=== PATIENT | female | born 1990 | race Caucasian/White ===

== ENCOUNTER 2017-11-26 13:00 | Outpatient (CLI) | payer OTHER, BC, SELFPAY ==
[2017-11-26 13:35] VITALS: BMI 26.3
--- NOTE | 2017-11-26 17:50 | OB.TRI.NOTE ---
History of Present Illness Date of Service: 11/26/17 Was patient seen by the physician?: No Reason For Visit: MONITORING Date of Service: 11/26/17 Final CHARLES: 03/09/18 Final CHARLES Source: US <20 weeks Gestational age: 25 Weeks and 2 Days History of Present Illness: Nancy had a fall today hurting her ankle and striking her right abdomen. Denies abdominal pain or cramping. No bleeding. Good movement. Home Medications Medication Instructions Recorded Vits [Prenatabs FA] 1 tablet PO DAILY 11/26/17 busPIRone [Buspar] 5 mg PO BID 11/26/17 Allergies No Known Allergies Allergy (Verified 11/26/17 13:37) Physical Exam General: Alert, Oriented x3, Cooperative, No apparent distress Cardiovascular: Regular rate, Regular Rhythm Lungs: Clear to auscultation, Normal air movement Abdomen: Soft, Non Tender, Non-Distended, Gravid, Appropriate for Gestational Age Extremities:: No edema Estimated gestational size: Appropriate for gestational size Presentation: Unable to assess NST - FHR Rate Baby A Baseline: 150s Variability:: Moderate Accelerations:: 15 x 15 Decelerations:: None NST Reactive:: Yes, Appropriate for gestational age FHR Category:: Category I Uterine Activity:: none Impression/Plan No signs of abruption and reassuring status after prolonged monitoring. Warning signs given. Will followup in the office.
== END 2017-11-26 15:20 | disposition home or self-care (01) ==
LOC: WPOUT 13:09 → WP 13:10
PROVIDERS: Family Provider Family Medicine; PCP Family Medicine; Visit Provider Obstetrics & Gynecology
DX: Z34.92 Encounter for supervision of normal pregnancy, unspecified, second trimester (principal); W18.30XA Fall on same level, unspecified, initial encounter
CPT/HCPCS: 59025; 59050; 99218; G0378

== ENCOUNTER → 2018-02-07 15:33 | Outpatient (CLI) | payer OTHER, BC, SELFPAY ==
[2018-02-07 18:34] LABS: Group B Strep DNA By PCR POSITIVE (Negative); Probe Check PASS
== END ==
PROVIDERS: Visit Provider Obstetrics & Gynecology
DX: Z36.85 Encounter for antenatal screening for Streptococcus B (principal)
CPT/HCPCS: 87653

== ENCOUNTER 2018-02-18 17:08 | Inpatient (IN) | payer OTHER, BC, SELFPAY ==
[2018-02-18 13:40] VITALS: BMI 27.3
[2018-02-18] MEDS: Lactated Ringers 1,000 ML 50 ML IV ×3 (17:25→23:53)
[2018-02-18 17:47] LABS: Hematocrit 39.3 % (37-47); Hemoglobin 12.8 g/dl (12.0-15.0); Mean Corp Hgb Conc 32.6 g/gl (32-36); Mean Corpuscular Hgb 27.7 pg (27.0-32.0); Mean Corpuscular Volume 85.1 fL (81-99); Mean Platelet Vol. 10.6 fl (6.2-12.0); Platelet Count 215 K/mm3 (150-450); RBC Distribution Width SD 46.7 fl (35.1-43.9); Red Blood Count 4.62 M/mm3 (4.2-5.4)
[2018-02-18 17:50] LABS: Scan Indicated on CBC? Y/N NO
--- NOTE | 2018-02-18 20:10 | PCM.PN.BLA ---
Progress Note LABOR PROGRESS NOTE No complaints. Contractions persist, no increase in intensity. AVSS GEN - NAD, AAO x 3 FHR 145, moderate variability, + accelerations, no decelerations TOCO 2/10 min SVE deferred A/P: 27yo @ 37 2/7wga in active labor, Cat I FHR -GBS positive: PCN ppx - first dose completed approx 1 hour ago -Plan for repeat SVE in 1 hour -Maternal and statuses reassuring
[2018-02-18] MEDS: fentaNYL-bupivacaine (epidural) 100 ML BAG EPIDURAL (22:14)
--- NOTE | 2018-02-18 22:37 | PCM.PN.BLA ---
Progress Note LABOR PROGRESS NOTE Cat I FHR initially with FHR with prolonged deceleration down to 70s bpm. SVE /-2. Patient given O2 and repositioned into hands and knees. Difficulty obtaining accurate FHR tracing, thus ISE placed with exam /0. BP 96/52, P 86. FHR returned to 125, moderate variability following repositioning. Anesthesiology reconsulted for Ephedrine. Will continue to monitor. Anticipate .
[2018-02-18] MEDS: Ondansetron 4 MG/2 ML Vial IV (22:52)
[2018-02-19] MEDS: Oxytocin 30 units/NS 500 ml 30 UNITS/500 ML IV.SOLN 334 UNITS IV (01:25)
--- NOTE | 2018-02-19 01:37 | PCM.OB.VAG ---
- Problem List (1) 37 weeks gestation of Status: Acute (2) (spontaneous vaginal delivery) Status: Acute Vaginal Delivery Maternal Presentation: Active Labor Method of Induction: - - Amniotomy for augmentation Amniotic Membrane Rupture Type: Artificial Rupture of Membrane time: 02/18/18 2041h Amniotic Fluid Description: Clear Final CHARLES: 03/09/18 Final CHARLES Source: US <20 weeks Gestational age: 37 Weeks and 3 Days Date of Procedure: 02/19/18 Pre-Operative Diagnosis: 37 3/7wga, labor, GBS positive Post-Operative Diagnosis: 37 3/7wga, labor, GBS positive Surgery/ Procedure Performed: Spontaneous Vaginal Delivery Anesthesiologist: Kacey Austin Type of Anesthesia: Epidural Description of Procedure: Patient was FD/+2 station on my arrival. She pushed to deliver a vigorous male . The was placed on the maternal abdomen and further attended by nursery personnel. The cord was doubly clamped and cut aft 5 minutes of life. Cord gases and cord blood specimen were obtained. The placenta delivered spontaneously and appeared intact on inspection. A first degree perineal laceration was repaired using 3-0 Vicryl Rapide. The fundus was firm at the umbilicus. Sponge and needle counts were correct x 2. Presentation: Vertex Placental Delivery Description: Spontaneous Placenta Disposition: [facility] Cord Vessel Description: 3 Vessels Nuchal Cord Compression: Without compression Cord Gases drawn per routine: ABG, VBG Cord Entanglement: None Drain: Angela to straight drain Estimated Blood Loss: 250 ml A gender: Male (1 minute): 8 (5 minute): 9 Episiotomy Description: None Laceration: Midline, Perineal Extension/lac, 1st degree Medications given after delivery: IV Pitocin Complications: None
--- NOTE | 2018-02-19 01:44 | DCINST_ITS ---
Discharge Diet: No Restrictions Discharge Activity: Return to Normal Activity, May Shower, May Take a Tub Bath May resume sexual activity in: 6 weeks Lifting Restrictions: 20 lb Call your doctor if you observe: Fever of 101 or Higher, Inability to urinate, Inability to have a bowel movement, Using more than one pad per hour, Shortness of breath, Chest pain, Calf discomfort, Uncontrolled pain Suture Line Care: Avoid Pulling/Pushing Cleanse incision/area with: Soap & Water Additional Instructions: If you experience any of the following, contact your healthcare provider. * Bleeding that soaks a pad every hour for 2 hours * Fever 100.4 or higher * Unrelieved incision or abdominal pain * Swelling, redness, discharge or bleeding from your incision or episiotomy site * Your incision begins to separate * Problems urinating (including inability to urinate or burning while urinating) . * Visual changes * Severe headache * Flu-like symptoms * Pain or redness in one of both of your breasts * Pain, warmth, tenderness or swelling in your legs, especially the calf area * Frequent nausea and vomiting * Symptoms of depression or anxiety If you experience any of the following, call 911 or go to the nearest Emergency Room. * Chest pain * Problems breathing * Seizure activity * Partial or complete paralysis of a body part, slurred speech, weakness or drooping of the face, or a sudden inability to walk or hold your balance Allergies/Adverse Reactions: Allergies No Known Allergies Allergy (Verified 02/18/18 13:43) Medications to take at Discharge Vits [Prenatabs FA ] 1 tablet PO DAILY 11/26/17 busPIRone [Buspar] 5 mg PO BID 11/26/17 Ibuprofen 600 mg PO TID PRN #30 tab 02/20/18 The following prescriptions were given: Ibuprofen 600 mg PO TID PRN #30 tab PRN Reason: Pain Please Follow Up With: Luis Alberto Stephen MD When: 6 weeks Primary Care Physician: Luis Alberto Stephen MD [Primary Care Provider] - Test Results: Test results from this visit will be discussed in further detail at your follow- up appointment, if applicable.
[2018-02-19] MEDS: Oxytocin 30 units/NS 500 ml 30 UNITS/500 ML IV.SOLN 167 UNITS IV (01:55)
[2018-02-19 03:15] VITALS: BP 110/69; PULSE 117; RESP 16; TEMP 36.6
[2018-02-19 08:00] VITALS: BP 94/62; PULSE 72; RESP 18; TEMP 36.4
[2018-02-19] MEDS: Senna/Docusate Sodium 1 Tablet PO (08:13)
[2018-02-19] MEDS: Ibuprofen 600 MG Tablet PO ×2 (11:19→19:56)
[2018-02-19] MEDS: busPIRone 5 MG Tablet PO ×2 (11:20→22:02)
[2018-02-19] MEDS: Prenatal Vits Tablet 1 TABLET PO (11:20)
[2018-02-19 11:22] VITALS: BP 104/64; PULSE 85; RESP 18; TEMP 36.6
[2018-02-19 14:58] VITALS: BP 114/70; PULSE 80; RESP 18; TEMP 36.4
[2018-02-19 19:45] VITALS: BP 109/72; PULSE 94; RESP 18; TEMP 36.4; O2SAT 96
[2018-02-20 00:30] VITALS: BP 113/63; PULSE 79; RESP 16; TEMP 36.4; O2SAT 95
[2018-02-20 05:00] VITALS: BP 108/72; PULSE 77; RESP 16; TEMP 36.7; O2SAT 98
[2018-02-20] MEDS: Ibuprofen 600 MG Tablet PO ×2 (05:14→21:41)
--- NOTE | 2018-02-20 09:32 | PCM.PN.OB ---
Patient Problems: Active and Suspected Problems (Last Updated 02/16/18 @ 06:46 by Yamileth Morrissey) 37 weeks gestation of (Acute) (spontaneous vaginal delivery) (Acute) Subjective: Doing well, no issues overnight. Infant is nursing better yesterday and this morning. Objective: AVSS - Physical Exam General: Alert, Oriented x3, Cooperative, No apparent distress HEENT: Atraumatic, Normocephalic Lungs: Clear to auscultation, Normal air movement Cardiovascular: Regular rate, Regular Rhythm, Normal S1, Normal S2 Abdomen: Soft, Non Tender, Non-Distended, - - Fundus firm and nontender Extremities: No edema, No Calf Tenderness Neurological: Neuro grossly intact Psych/Mental Status: Normal Affect, Appropriate, Alert and oriented to time, place, person, mood and affect Vital Signs Temp Pulse Resp BP Pulse Ox 98.0 F 77 16 108/72 98 02/20/18 05:00 02/20/18 05:00 02/20/18 05:00 02/20/18 05:00 02/20/18 05:00 Oxygen Delivery Method Room Air Weight: 70.2 kg Body Mass Index (BMI) 27.3 Intake and Output for Last 24 Hours 02/18/18 02/19/18 02/20/18 23:59 23:59 23:59 Intake Total 3967 / 3967 Output Total 2500 / 2500 Balance 1467 / 1467 Microbiology Past 72 Hours 02/18/18 12:15 Urine Culture - Preliminary Urine, Clean Catch Mixed Gram Positive Organisms Medical Necessity - Tobacco Use Smoking Status: Former smoker Assessment/Plan All Active Problems (Last Updated 02/16/18 @ 06:46 by Yamileth Morrissey) 37 weeks gestation of (Acute) (spontaneous vaginal delivery) (Acute) Multiple premature ventricular complexes (Acute) Abnormal thyroid blood test (Acute) Tachycardia (Acute) 27yo PPD#1 s/p doing well. -Rh positive -Routine care - -Plan for d/c later today
[2018-02-20] MEDS: Prenatal Vits Tablet 1 TABLET PO (09:59)
[2018-02-20] MEDS: Senna/Docusate Sodium 1 Tablet PO (09:59)
[2018-02-20 10:00] VITALS: BP 111/79; PULSE 88; RESP 16; TEMP 36.2
[2018-02-20] MEDS: busPIRone 5 MG Tablet PO ×2 (13:43→21:41)
[2018-02-20 18:00] VITALS: BP 104/66; PULSE 85; RESP 16; TEMP 36.2
[2018-02-20 19:50] VITALS: BP 109/68; PULSE 87; RESP 16; TEMP 36.4; O2SAT 97
[2018-02-21 03:00] VITALS: BP 99/62; PULSE 98; RESP 18; TEMP 36.4; O2SAT 96
[2018-02-21 08:00] VITALS: BP 103/69; PULSE 83; RESP 16; TEMP 36.1
--- NOTE | 2018-02-21 08:15 | PCM.PN.OB ---
Patient Problems: Active and Suspected Problems (Last Updated 02/16/18 @ 06:46 by Yamileth Morrissey) 37 weeks gestation of (Acute) (spontaneous vaginal delivery) (Acute) Subjective: No issues overnight. Objective: avss - Physical Exam General: Alert, Oriented x3, Cooperative HEENT: Atraumatic, Normocephalic Lungs: Normal air movement Cardiovascular: Regular rate, Regular Rhythm Abdomen: Soft, Non Tender, Non-Distended, - - fundus firm and nontender Extremities: No edema, No Calf Tenderness Neurological: Neuro grossly intact Psych/Mental Status: Normal Affect, Appropriate, Alert and oriented to time, place, person, mood and affect Vital Signs Temp Pulse Resp BP Pulse Ox 97.5 F L 98 18 101/70 96 02/21/18 03:00 02/21/18 03:00 02/21/18 03:00 02/21/18 03:00 02/21/18 03:00 Oxygen Delivery Method Room Air Weight: 70.2 kg Body Mass Index (BMI) 27.3 Intake and Output for Last 24 Hours 02/19/18 02/20/18 02/21/18 23:59 23:59 23:59 Intake Total 3967 / 3967 Output Total 2500 / 2500 Balance 1467 / 1467 Microbiology Past 72 Hours 02/18/18 12:15 Urine Culture - Final Urine, Clean Catch Streptococcus group B Mixed Gram Positive Organisms Medical Necessity - Tobacco Use Smoking Status: Former smoker Assessment/Plan All Active Problems (Last Updated 02/16/18 @ 06:46 by Yamileth Morrissey) 37 weeks gestation of (Acute) (spontaneous vaginal delivery) (Acute) Multiple premature ventricular complexes (Acute) Abnormal thyroid blood test (Acute) Tachycardia (Acute) 27yo PPD#2 s/p doing well. -Rh positive -Routine care - -d/c today
--- NOTE | 2018-02-21 08:16 | PCM.DC.SUM ---
Discharge Date and Diagnosis - Problem List Patient Problems: Active and Suspected Problems (Last Updated 02/16/18 @ 06:46 by Yamileth Morrissey) 37 weeks gestation of (Acute) (spontaneous vaginal delivery) (Acute) Date of Admission: 02/18/18 Date of Discharge: 02/21/18 - Primary Discharge Diagnosis Active and Suspected Problems (Last Updated 02/16/18 @ 06:46 by Yamileth Morrissey) 37 weeks gestation of (Acute) (spontaneous vaginal delivery) (Acute) - Secondary Discharge Diagnosis Chronic Problems (Last Updated 02/16/18 @ 06:46 by Yamileth Morrissey) History of nicotine use (Chronic) Hyperlipidemia (Chronic) Hospital Course and Treatment Operations: None Summary of Care Provided: The patient is a 27 year old F admitted in latent labor. She progressed to deliver a vigorous male infant. Her course was unremarkable and she was discharged to home on day #2. Discharge Diet: No Restrictions Discharge Activity: Return to Normal Activity, May Shower, May Take a Tub Bath May resume sexual activity in: 6 weeks Call your doctor if you observe: Fever of 101 or Higher, Inability to urinate, Inability to have a bowel movement, Using more than one pad per hour, Shortness of breath, Chest pain, Calf discomfort, Uncontrolled pain Suture Line Care: Avoid Pulling/Pushing Cleanse incision/area with: Soap & Water Home Medications: Medications to take at Discharge Vits [Prenatabs FA ] 1 tablet PO DAILY 11/26/17 busPIRone [Buspar] 5 mg PO BID 11/26/17 Ibuprofen 600 mg PO TID PRN #30 tab 02/20/18 Following Prescrptions Were Given to Patient: Ibuprofen 600 mg PO TID PRN #30 tab PRN Reason: Pain Primary Care Physician: Luis Alberto Stephen MD [Primary Care Provider] - Please Follow Up With: Luis Alberto Stephen MD Medical Necessity - Tobacco Use Smoking Status: Former smoker Meaningful Use Info Meaningful Use Diagnoses (Choose all that apply): None applicable
[2018-02-21] MEDS: busPIRone 5 MG Tablet PO (09:17)
[2018-02-21] MEDS: Prenatal Vits Tablet 1 TABLET PO (09:17)
[2018-02-21] MEDS: Senna/Docusate Sodium 1 Tablet PO (09:17)
--- NOTE | 2018-03-01 16:15 | NURSING ---
made follow up phone call . no answer and no voicemail
== END 2018-02-21 13:15 | disposition home or self-care (01) | DRG 774 ==
LOC: WPOUT 17:08 → WP 02-19 01:19
PROVIDERS: Admitting Provider Obstetrics & Gynecology; Family Provider Obstetrics & Gynecology; PCP Obstetrics & Gynecology; Visit Provider Obstetrics & Gynecology
DX: O60.14X0 Preterm labor third trimester with preterm delivery third trimester, not applicable or unspecified (principal); O98.82 Other maternal infectious and parasitic diseases complicating childbirth; O76 Abnormality in fetal heart rate and rhythm complicating labor and delivery; B95.1 Streptococcus, group B, as the cause of diseases classified elsewhere; O69.81X0 Labor and delivery complicated by cord around neck, without compression, not applicable or unspecified; O70.0 First degree perineal laceration during delivery; Z3A.37 37 weeks gestation of pregnancy; Z37.0 Single live birth; Z87.891 Personal history of nicotine dependence
CPT/HCPCS: 59025; 59050; 85027; 86850; 86900; 87086; 87088; 99218; J7120; G0378; J2405

== ENCOUNTER → 2019-08-16 13:54 | Outpatient (CLI) | payer OTHER, BC, SELFPAY ==
[2019-08-09 12:43] VITALS: BMI 25.2
== END ==
LOC: PSN 13:56
PROVIDERS: PCP Family Medicine; Referring Provider Internal Medicine Cardiovascular Disease; Visit Provider Internal Medicine Cardiovascular Disease
DX: R00.2 Palpitations (principal); R07.9 Chest pain, unspecified
CPT/HCPCS: 93225; 93226

== ENCOUNTER → 2019-08-17 14:45 | Outpatient (CLI) | payer OTHER, BC, SELFPAY ==
[2019-08-09 12:43] VITALS: BMI 25.2
--- NOTE | 2019-08-17 14:45 | ECHOD_ITS ---
Reason For Study: MVP Procedure This was a 2D Doppler, Color Flow transthoracic echocardiogram. Exam performed in department. Left Ventricle Normal LV size. Left ventricular systolic function is normal. The estimated ejection fraction is 60 %. No regional wall motion abnormalities noted. Right Ventricle Normal RV size. Normal systolic function. Atria Normal left atrium. Normal right atrium. Mitral Valve Equivocal mitral valve prolapse. Mild (1+) eccentric mitral valve insufficiency. Tricuspid Valve Normal tricuspid valve. Mild (1+) tricuspid valve insufficiency. Pulmonary artery systolic pressure is 30 mmHg. Aortic Valve Normal aortic valve. Trisinus/trileaflet aortic valve. Pulmonic Valve Normal pulmonic valve. Great Vessels Normal aortic root. The pulmonary artery is normal size. Normal inferior vena cava. Pericardium/Pleural No pericardial effusion. MMode/2D Measurements & Calculations LVIDd: 4.8 cm IVSd: 0.71 cm Ao root diam: 2.7 cm LVIDs: 3.2 cm LVPWd: 0.77 cm RVDd: 2.9 cm FS: 33.5 % LAV(MOD-bp): 35.6 ml LA A4 area: 15.6 cm2 LA dimension(2D): 3.3 cm LAV(MOD-bp) Indexed: 22.0 ml/m2 LAV(MOD-sp2): 27.5 ml LAV(MOD-sp4): 38.5 ml RA A4 area: 10.8 cm2 Time Measurements MV dec time: 0.24 sec Doppler Measurements & Calculations MV E max tomer: 79.3 cm/sec Lat Peak E' Tomer: 17.0 cm/sec Med Peak E' Tomer: 13.9 cm/sec MV A max tomer: 52.2 cm/sec E/E' lat: 4.7 E/E' med: 5.7 MV E/A: 1.5 Ao V2 max: 134.3 cm/sec LV V1 max: 130.4 cm/sec TR max tomer: 252.1 cm/sec Ao max P.2 mmHg LV V1 max P.8 mmHg TR max P.4 mmHg Interpretation Summary Normal LV size. Left ventricular systolic function is normal. The estimated ejection fraction is 60 %. Equivocal mitral valve prolapse. Mild (1+) eccentric mitral valve insufficiency. Ordering Physician: Mayo Ferguson Referring Physician: ARUN AUGUSTIN Performed By: Jaylyn Moreno, [place], RVT
== END ==
LOC: CVS 14:45
PROVIDERS: PCP Family Medicine; Referring Provider Internal Medicine Cardiovascular Disease; Visit Provider Internal Medicine Cardiovascular Disease
DX: R00.2 Palpitations (principal)
CPT/HCPCS: 93306

== ENCOUNTER → 2020-06-21 11:03 | Outpatient (CLI) | payer OTHER, BC, MEDICAID, SELFPAY ==
--- NOTE | 2020-06-21 11:08 | US_ITS ---
STUDY: FIRST TRIMESTER OBSTETRICAL ULTRASOUND REASON FOR EXAM: Female, 29 years old SPOTTING WITH PREG- VIABILITY LMP: 05/04/2020. TECHNIQUE: Transvaginal TECHNICAL QUALITY: Adequate. PRIOR ULTRASOUND: None. FINDINGS: There is visualization of a single gestational sac in a normal intrauterine position. The mean sac diameter (MSD) measures 1.4 cm, indicating an estimated gestational age (EGA) of 6 weeks, 2 days. The gestational sac shape is within normal limits. There is a visualized yolk sac. The yolk sac measures 2 mm. The placenta is non-visualized. There is visualization of a live embryo. The crown-rump length (CRL) measures 3 mm, indicating an estimated gestational age (EGA) of 6 weeks, 1 days. There is demonstrated cardiac activity with a heart rate of 114 bpm. The estimated gestation age (EGA) by LMP is 6 weeks, 6 days. The estimated date of delivery (CHARLES) by LMP is 02/08/2021. The estimated gestation age (EGA) by US is 6 weeks, 1 days. The estimated date of delivery (CHARLES) by US is 02/13/2021. The uterus measures 10.2 cm x 6.7 cm x 5.9 cm. There is no demonstrated uterine fibroid. The cervix is closed. The right ovary measures 2.7 cm x 1.9 cm x 1.6 cm. There is no right ovarian cyst. There is no visualized right adnexal mass or complex lesion. The left ovary measures 2.4 cm x 1.5 cm x 1.4 cm. There is no left ovarian cyst. There is no visualized left adnexal mass or complex lesion. There is no fluid in the cul de sac. US/Transvaginal w/Preg US IMPRESSION: Single live intrauterine gestation with mean gestational age of 6 weeks and 1 day. Electronically Signed: Bhupinder Harding, at 12:08 EST , Service support ,
== END ==
PROVIDERS: PCP Family Medicine; Referring Provider Obstetrics & Gynecology; Visit Provider Obstetrics & Gynecology
DX: R35.0 Frequency of micturition (principal)
CPT/HCPCS: 76817; 87086; 87088

== ENCOUNTER → 2020-07-04 16:38 | Outpatient (CLI) | payer OTHER, BC, MEDICAID, SELFPAY ==
[2020-07-04 10:10] VITALS: BMI 28.0
[2020-07-04 18:34] LABS: Amphetamine Urine VISTA NEGATIVE (<1000 ng/mL); Barbiturate Urine VISTA NEGATIVE (< 200 ng/mL); Benzodiazepine Urine VISTA NEGATIVE (< 200 ng/mL); Cocaine Urine VISTA NEGATIVE (< 300 ng/mL); Ecstacy Urine VISTA NEGATIVE (< 500 ng/mL); Methadone Urine VISTA NEGATIVE (< 300 ng/mL); PCP Urine VISTA NEGATIVE (< 25 ng/mL); THC Urine VISTA NEGATIVE (< 50 ng/mL); Vista UDS pH Range 6
[2020-07-08 16:08] LABS: Chlamydia By Nucleic Acid AMP Negative (Negative)
[2020-07-08 20:51] LABS: Gonococcus By Nucleic Acid AMP Negative (Negative)
== END ==
PROVIDERS: PCP Family Medicine; Referring Provider Obstetrics & Gynecology; Visit Provider Obstetrics & Gynecology
DX: Z34.90 Encounter for supervision of normal pregnancy, unspecified, unspecified trimester (principal)
CPT/HCPCS: 80307; 87086; 87088; 87491; 87591

== ENCOUNTER → 2020-08-01 11:01 | Outpatient (CLI) | payer OTHER, BC, MEDICAID, SELFPAY ==
[2020-08-01 11:20] LABS: Absolute Lymphocyte Count 1.31 X10^3/uL (0.83-4.51); Basophil# 0.03 X10^3/uL; Basophil% 0.3 % (0-1); Eosinophil# 0.07 X10^3/uL; Eosinophils% 0.8 % (0-5); Hematocrit 40.8 % (37-47); Hemoglobin 14.1 g/dL (12.0-15.0); Lymphocyte # 1.31 X10^3/ul (4.0); Lymphocyte % 14.6 % (19-41); Mean Corp Hgb Conc 34.6 g/dL (32-36); Mean Corpuscular Hgb 31.5 pg (27.0-32.0); Mean Corpuscular Volume 91.1 fL (81-99); Mean Platelet Vol. 9.9 fl (6.2-12.0); Monocyte# 0.52 X10^3/uL; Monocyte% 5.8 % (0-10); NRBC Flagged by Analyzer 0 % (0-5); Neutrophil # 6.99 X10^3/uL (2.7-7.7); Neutrophil % 78.2 % (47-70); Platelet Count 306 K/mm3 (150-450); RBC Distribution Width CV 13.1 % (11.6-14.6); RBC Distribution Width SD 43.6 fl (35.1-43.9); Red Blood Count 4.48 M/mm3 (4.2-5.4)
[2020-08-01 12:43] LABS: HIV - WCH Non-Reactive (Nonreactive); Hepatitis B Surface Antigen Non-Reactive (Nonreactive); Hepatitis C Antibody Non-Reactive (Nonreactive); Rubella IgG Reactive (Nonreactive)
[2020-08-08 03:02] LABS: Rapid Plasmin Reagin (RPR) NONREACTIVE (NONREACTIVE)
== END ==
PROVIDERS: PCP Family Medicine; Referring Provider Obstetrics & Gynecology; Visit Provider Obstetrics & Gynecology
DX: Z34.90 Encounter for supervision of normal pregnancy, unspecified, unspecified trimester (principal)
CPT/HCPCS: 36415; 85025; 86592; 86703; 86762; 86803; 86850; 86900; 86901; 87340

== ENCOUNTER → 2020-08-30 10:06 | Outpatient (CLI) | payer OTHER, BC, MEDICAID, SELFPAY ==
[2020-08-30 09:39] VITALS: BMI 27.3
[2020-08-30 11:20] LABS: NATERA MAILED SPECIMEN
== END ==
PROVIDERS: PCP Family Medicine; Referring Provider Obstetrics & Gynecology; Visit Provider Obstetrics & Gynecology
DX: Z34.82 Encounter for supervision of other normal pregnancy, second trimester (principal)
CPT/HCPCS: 36415

== ENCOUNTER → 2020-10-03 10:14 | Outpatient (CLI) | payer OTHER, BC, MEDICAID, SELFPAY ==
[2020-09-26 09:03] VITALS: BMI 26.6
[2020-10-03 10:17] VITALS: BP 121/74; PULSE 114; RESP 16; TEMP 35.7; O2SAT 96; BMI 26.5
[2020-10-03] MEDS: Ondansetron 4 MG/2 ML Vial IV (10:29)
[2020-10-03] MEDS: Dextrose 5%-Lactated Ringers 1,000 ML 999 ML IV (10:40)
[2020-10-03 11:49] VITALS: BP 116/65; PULSE 95; RESP 16; O2SAT 100
== END ==
PROVIDERS: PCP Family Medicine; Referring Provider Obstetrics & Gynecology; Visit Provider Obstetrics & Gynecology
DX: E86.0 Dehydration (principal)
CPT/HCPCS: 96365; A4216; J2405

== ENCOUNTER → 2020-11-12 12:05 | Outpatient (CLI) | payer OTHER, BC, MEDICAID, SELFPAY ==
[2020-11-11 09:48] VITALS: BMI 27.3
[2020-11-12 12:50] LABS: Absolute Lymphocyte Count 1.08 X10^3/uL (0.83-4.51); Absolute Neutrophil Count 6.1 X10^3/uL (2.0-7.7); Basophil# 0.03 X10^3/uL; Basophil% 0.4 % (0-1); Eosinophil# 0.12 X10^3/uL; Eosinophils% 1.5 % (0-5); Hematocrit 40.4 % (37-47); Hemoglobin 13.4 g/dL (12.0-15.0); Lymphocyte # 1.08 X10^3/ul (0.83-4.51); Lymphocyte % 13.6 % (19-41); Mean Corp Hgb Conc 33.2 g/dL (32-36); Mean Corpuscular Hgb 29.7 pg (27.0-32.0); Mean Corpuscular Volume 89.6 fL (81-99); Mean Platelet Vol. 10.6 fl (6.2-12.0); Monocyte# 0.58 X10^3/uL; Monocyte% 7.3 % (0-10); NRBC Flagged by Analyzer 0 % (0-5); Neutrophil # 6.07 X10^3/uL (2.7-7.7); Neutrophil % 76.7 % (47-70); Platelet Count 289 K/mm3 (150-450); RBC Distribution Width CV 15.1 % (11.6-14.6); Red Blood Count 4.51 M/mm3 (4.2-5.4); White Blood Count 7.9 K/mm3 (4.4-11.0)
[2020-11-12 13:08] LABS: Glucose Challenge Gest 1H 50g 137 mg/dL (70-140)
== END ==
PROVIDERS: Nurse Practitioner Women's Health; PCP Family Medicine; Referring Provider Obstetrics & Gynecology; Visit Provider Obstetrics & Gynecology
DX: O09.90 Supervision of high risk pregnancy, unspecified, unspecified trimester (principal); Z13.1 Encounter for screening for diabetes mellitus; Z3A.00 Weeks of gestation of pregnancy not specified
CPT/HCPCS: 36415; 82950; 85025

== ENCOUNTER → 2020-11-15 10:13 | Outpatient (CLI) | payer OTHER, BC, MEDICAID, SELFPAY ==
[2020-11-12 12:59] VITALS: BMI 27.3
[2020-11-15 11:47] LABS: Glucose GTT-Gestation. Fasting 79 mg/dL (<105)
[2020-11-15 12:57] LABS: Glucose GTT-Gestational 1 Hr 135 mg/dL (<190)
[2020-11-15 12:58] LABS: Glucose GTT-Gestational 2 Hr 119 mg/dL (<165)
[2020-11-15 13:57] LABS: Glucose GTT-Gestational 3 Hr 116 L (<145)
== END ==
PROVIDERS: PCP Family Medicine; Referring Provider Nurse Practitioner Women's Health; Visit Provider Nurse Practitioner Women's Health
DX: Z13.1 Encounter for screening for diabetes mellitus (principal)
CPT/HCPCS: 36415; 82951; 82952

== ENCOUNTER → 2020-12-10 12:07 | Outpatient (CLI) | payer BC, MEDICAID, SELFPAY ==
[2020-11-12 12:59] VITALS: BMI 27.3
[2020-12-10 11:53] VITALS: BMI 27.3
--- NOTE | 2020-12-10 12:09 | US_ITS ---
STUDY: SECOND AND THIRD TRIMESTER OBSTETRICAL ULTRASOUND - LIMITED REASON FOR EXAM: Female, 30 years old growth LMP: 05/04/2020. PRIOR ULTRASOUND: Comparison is made with prior study dated 06/21/2020. TECHNIQUE: Transabdominal TECHNICAL QUALITY: Adequate. FINDINGS: There is a single intrauterine fetus. The fetus is in a cephalic presentation. There is demonstrated cardiac activity with a heart rate of 144 bpm. There is a normal amniotic fluid volume. The largest amniotic fluid pocket measures 4 cm x 3.9 cm. The amniotic fluid index (LISANDRO) is 12.9 cm. The placenta is anterior in location and is not low lying. There are Grade 1 placental changes. The cervix measures 3.3 cm in length. BIOMETRY: BPD: 7.82 cm: 31 weeks, 2 days HC: 28.72 cm: 31 weeks, 4 days AC: 27.63 cm: 31 weeks, 4 days FL: 5.9 cm: 30 weeks, 5 days Age by LMP: 31 weeks, 3 days. CHARLES by LMP: 02/08/2021. age by prior US: 30 weeks, 5 days. CHARLES by prior US: 02/13/2021. age by current US: 31 weeks, 1 days. CHARLES by current US: 02/10/2021. Estimated weight: 1770 grams, +/- 266 grams, 39.1 percentile. US/OB Limited With Biometrics IMPRESSION: Single live intrauterine gestation with a mean gestational age of 30 weeks and 5 days. The measurements obtained today fall within the normal expected range. Electronically Signed: Bhupinder Harding MD at 13:56 EDT , Service support ,
== END ==
PROVIDERS: PCP Family Medicine; Referring Provider Obstetrics & Gynecology; Visit Provider Obstetrics & Gynecology
DX: Z86.79 Personal history of other diseases of the circulatory system (principal)
CPT/HCPCS: 76816

== ENCOUNTER → 2020-12-23 16:55 | Outpatient (CLI) | payer BC, MEDICAID, SELFPAY ==
[2020-12-23 11:37] VITALS: BMI 26.7
== END ==
PROVIDERS: PCP Family Medicine; Visit Provider Obstetrics & Gynecology
DX: O26.899 Other specified pregnancy related conditions, unspecified trimester (principal); N89.8 Other specified noninflammatory disorders of vagina; Z3A.00 Weeks of gestation of pregnancy not specified
CPT/HCPCS: 87070; 87205

== ENCOUNTER → 2021-01-07 12:13 | Outpatient (CLI) | payer BC, MEDICAID, SELFPAY ==
[2020-12-23 11:37] VITALS: BMI 26.7
[2021-01-07 11:36] VITALS: BMI 26.7
--- NOTE | 2021-01-07 12:15 | US_ITS ---
STUDY: SECOND AND THIRD TRIMESTER OBSTETRICAL ULTRASOUND - LIMITED REASON FOR EXAM: Female, 30 years old. growth. History of hypertension. LMP: 05/04/20 PRIOR ULTRASOUND: 12/10/20 TECHNIQUE: Transabdominal ultrasound evaluation was performed. FINDINGS: There is a single intrauterine fetus. The fetus is in a cephalic presentation. There is demonstrated cardiac activity with a heart rate of 143 bpm. There is a normal amniotic fluid volume. The largest amniotic fluid pocket measures 4.9 cm. The amniotic fluid index (LISANDRO) is 11.2 cm. The placenta is anterior in location and is not low lying. There are Grade 1 placental changes. The cervix is closed and measures 3.2 cm in length. BIOMETRY: BPD: 8.67 cm: 34 weeks, 6 days HC: 31.57 cm: 35 weeks, 3 days AC: 31.91 cm: 35 weeks, 5 days FL: 6.84 cm: 35 weeks, 0 days Age by LMP: 35 weeks, 3 days. CHARLES by LMP: 02/08/21. age by prior US: 35 weeks, 1 days. CHARLES by prior US: 02/10/21. age by current US: 35 weeks, 1 days. CHARLES by current US: 02/10/21. Estimated weight: 2724 grams, +/- 409 grams, 54 percentile. US/OB Limited With Biometrics IMPRESSION: Single live intrauterine gestation at approximately 35 weeks and 1 day based on the current ultrasound. Electronically Signed: Paul Hennessy MD at 9:21 EDT Tel , Service support ,
== END ==
PROVIDERS: PCP Family Medicine; Referring Provider Obstetrics & Gynecology; Visit Provider Obstetrics & Gynecology
DX: Z86.79 Personal history of other diseases of the circulatory system (principal)
CPT/HCPCS: 76816

== ENCOUNTER 2021-01-12 18:55 | Outpatient (CLI) | payer BC, MEDICAID, SELFPAY ==
[2021-01-07 11:36] VITALS: BMI 26.7
[2021-01-12 19:22] VITALS: BP 134/89; PULSE 103; PULSE 105; TEMP 36.8; O2SAT 98
[2021-01-12 19:29] VITALS: BMI 27.3
[2021-01-12 20:06] LABS: ROM Internal Control Test YES-OK TO RESULT pt. (Internal QC)
[2021-01-12 20:07] LABS: ROM Patient Test Negative (Negative)
--- NOTE | 2021-01-24 14:24 | OB.TRI.PN_ITS ---
Progress Notes Date of Service: 01/21/21 Progress Note: Patient presents for triage evaluation secondary to contractions. Cervix unchanged after recheck. Discharged in stable condition. FHT: Moderate variability reactive no decelerations category I tracing [facility]: Irregular Contractions Assessment and plan: Reactive NST, reassuring maternal and status patient discharged to home to follow-up at next scheduled visit. See problem list details for additional plan information. Laboratory Studies: Laboratory Tests 01/12/21 Range/Units 19:37 Vag Amniotic Fld Detect Negative (Negative)
== END 2021-01-12 20:49 | disposition home or self-care (01) ==
LOC: WPOUT 19:04 → WP 19:04
PROVIDERS: PCP Family Medicine; Visit Provider Obstetrics & Gynecology
DX: O47.9 False labor, unspecified (principal); Z3A.00 Weeks of gestation of pregnancy not specified
CPT/HCPCS: 59025; 59050; 84112; 99218; G0378

== ENCOUNTER → 2021-01-15 13:43 | Outpatient (CLI) | payer BC, MEDICAID, SELFPAY ==
[2021-01-15 11:20] VITALS: BMI 27.1
== END ==
PROVIDERS: PCP Family Medicine; Visit Provider Obstetrics & Gynecology
DX: O09.90 Supervision of high risk pregnancy, unspecified, unspecified trimester (principal); Z3A.00 Weeks of gestation of pregnancy not specified
CPT/HCPCS: 87081

== ENCOUNTER 2021-01-21 00:22 | Outpatient (CLI) | payer BC, MEDICAID, SELFPAY ==
[2021-01-15 11:20] VITALS: BMI 27.1
[2021-01-21 00:41] VITALS: BP 129/81; PULSE 93; TEMP 36.7; O2SAT 98
[2021-01-21 00:43] VITALS: BMI 27.3
[2021-01-21 04:17] VITALS: BP 124/84; PULSE 81
[2021-01-21 04:18] VITALS: BP 124/84; PULSE 92; RESP 18; TEMP 36.2; O2SAT 98
--- NOTE | 2021-01-21 07:26 | OB.TRI.PN ---
Progress Notes Date of Service: 01/21/21 Progress Note: Patient presents for triage evaluation secondary to contractions FHT: 130 Moderate variability reactive no decelerations category I tracing [place]: q1-6 Contractions Assessment and plan: false labor, no cervical change in 4 hours Reactive NST, reassuring maternal and status patient discharged to home to follow-up as scheduled. See problem list details for additional plan information. Charges/Coding Procedures Urinary/Genital [id number]: [id number] non-stress test Interp Assessment & Plan (1) False labor:
== END 2021-01-21 04:19 | disposition home or self-care (01) ==
LOC: WPOUT 00:33 → OBT 00:33
PROVIDERS: PCP Family Medicine; Visit Provider Obstetrics & Gynecology
DX: O47.9 False labor, unspecified (principal); Z3A.00 Weeks of gestation of pregnancy not specified
CPT/HCPCS: 59025; 59050; 99218; G0378

== ENCOUNTER 2021-01-25 06:55 | Inpatient (IN) | payer BC, MEDICAID, SELFPAY ==
[2021-01-24 11:29] VITALS: BMI 27.3
[2021-01-25] VITALS (46 sets, daily range): BP systolic 77–126; BP diastolic 44–86; PULSE 61–127; RESP 16–20; TEMP 36.7–37.6; O2SAT 82–100; BMI 27.2
[2021-01-25] MEDS: Lactated Ringers 1,000 ML 50 ML IV (07:45)
[2021-01-25 08:07] LABS: Absolute Lymphocyte Count 1.55 X10^3/uL (0.83-4.51); Absolute Neutrophil Count 6.2 X10^3/uL (2.0-7.7); Basophil# 0.03 X10^3/uL; Basophil% 0.4 % (0-1); Eosinophil# 0.07 X10^3/uL; Eosinophils% 0.8 % (0-5); Hematocrit 41.2 % (37-47); Hemoglobin 14.1 g/dL (12.0-15.0); Lymphocyte # 1.55 X10^3/ul (0.83-4.51); Lymphocyte % 18.1 % (19-41); Mean Corp Hgb Conc 34.2 g/dL (32-36); Mean Corpuscular Volume 87.7 fL (81-99); Mean Platelet Vol. 11.1 fl (6.2-12.0); Monocyte# 0.71 X10^3/uL; Monocyte% 8.3 % (0-10); NRBC Flagged by Analyzer 0 % (0-5); Neutrophil # 6.17 X10^3/uL (2.7-7.7); Platelet Count 271 K/mm3 (150-450); RBC Distribution Width CV 15.2 % (11.6-14.6); RBC Distribution Width SD 48.4 fl (35.1-43.9); White Blood Count 8.6 K/mm3 (4.4-11.0)
[2021-01-25] MEDS: Oxytocin 30 units/NS 500 ml 30 UNITS/500 ML IV.SOLN IV (08:19)
[2021-01-25] MEDS: Lactated Ringers 500 ML 999 ML IV ×2 (09:30→10:24)
--- NOTE | 2021-01-25 09:43 | HP.PCM.OB_ITS ---
HPI - General General Date of Admission: 01/25/21 HPI Narrative KARMA FU, is a 30 F at 38 weeks who presents for induction of labor for chronic hypertension Maternal Data Information CHARLES Calculator Estimated Delivery Date Method Current WG Current Estimate 02/08/21 LMP (Certain) 38w 0d Other Estimates 02/13/21 Ultrasound #1 37w 2d PFSH PFSH Medical History (Updated 01/25/21 @ 09:[address] Justine Kinsey MD) Anxiety Chronic hypertension Contraceptive management History of tetanus, diphtheria, and acellular pertussis booster vaccination (Tdap) Hyperlipidemia MRSA infection Multiple premature ventricular complexes Nonrheumatic mitral (valve) prolapse depression (spontaneous vaginal delivery) Tachycardia Home Medications lactobacillus combination no.8 3 billion cell capsule 3,000 mmu cells PO DAILY 06/21/20 [History Last Taken 01/24/21 21:00] ondansetron 4 mg disintegrating tablet 4 mg PO Q4H PRN #60 tab 07/16/20 [Rx Last Taken 01/08/21 08:00] fluoxetine 40 mg PO DAILY 01/12/21 [History Last Taken 01/24/21 06:00] buufsyyd-cbn-Nc-FA [ 1] 1 tab PO DAILY 01/12/21 [History Last Taken 01/24/21 21:00] magnesium 1 tab PO DAILY 01/21/21 [History Last Taken 01/21/21] Allergy/AdvReac Type Severity Reaction Status Date / Time No Known Allergies Allergy Verified 01/24/21 11:26 Family History Mother , from renal failure age 56 Diabetes Thyroid disorder Kidney disease from L\lupus/renal failure Heart disease Mitral Valve Repair Lupus Grandmother Cancer Maternal grandmother ovarian Lung cancer paternal Grandmother Father CAD (coronary artery disease) from [place] Myocardial infarction, Onset Age: 49 from [place] 47 Surgical History (Updated 01/25/21 @ 08:09 by Noemy Long) History of surgery Social History Smoking Status: Former smoker quit date: 07/19/18 pack-years: 4 alcohol intake: never substance use type: does not use caffeine: Yes what type of physical activity do you participate in: none seatbelt use: always do you feel safe at home: Yes additional social history: -Ernesto History 5 Elective abortions Hx Para 2 Spontaneous abortions Hx # Term Pregnancies Ectopic pregnancies Hx # Pregnancies Multiple births # of living children 2 Past Pregnancies Del. Date Name GA/Weeks Outcome Route Bth Weight Gen Labor Lgth Anesthesia Del Locatn Provider FOB 09/13/16 Jose 37 live - full term Male Marie Ernesto 02/19/18 Amrit 37 live - full term Male [facility] Dr. Kira Hernandez Ernesto Delivery Date: 09/13/16 tachycardia during labor, water broke at 37 weeks Randi Holt Delivery Date: 02/19/18 No issues during or delivery. Randi Holt Visit Details Expected Delivery Route/Plan by 38-39 due to h/o CHTN Labor Preferences- CB/BF classes: no labor support person: Ernesto labor intervention preferences: [] pain management options preferred: epidural cut cord/dad catch: no : yes PP control planned: discussed. consider IUD discussed possible routes of delivery and associated risks: [] special requests: [] Plans flu vaccine: no tdap vaccine: given rhogam: na LARC form signed: yes movement and labor precautions reviewed. Problem list reviewed and updated with the most current plan of care details and appropriate orders placed. Relevant counseling for the gestational age provided. Continue routine care and follow up unless otherwise noted in visit notes/problem list details OB Flowsheet Initial Weight: Not Recorded Date -?-?-?-?-?-?-?-?-?-?-?-?- EGA Weight BP Urine Prot -?-?-?-?-?-?-?-?-?-?-?-?- Glucose FHR FuHt Pres Dilation -?-?-?-?-?-?-?-?-?-?-?-?- Effaced St Visit Note 07/04/20 -?-?-?-?-?-?-?-?-?-?-?-?- 8w 5d 153 lb 128/88 -?-?-?-?-?-?-?-?-?-?-?-?- 160 -?-?-?-?-?-?-?-?-?-?-?-?- GP - CRL 18mm co nsistent with LMP and prior US. 08/01/20 -?-?-?-?-?-?-?-?-?-?-?-?- 12w 5d 108/84 Negative -?-?-?-?-?-?-?-?-?-?-?-?- Negative 150 -?-?-?-?-?-?-?-?-?-?-?-?- SM- no vb crampi ng doing well 08/30/20 -?-?-?-?-?-?-?-?-?-?-?-?- 16w 6d 149 lb 6 oz 112/76 Nega tive -?--?-?-?-?-?-?-?-?-?-?-?- Negative 150 -?-?-?-?-?-?-?-?-?-?-?-?- GP - no cramping or bleeding. Has had sinus infection for the past week that is getting worse - script given for amoxicillin. 09/26/20 -?-?-?-?-?-?-?-?-?-?-?-?- 20w 5d 146 lb 104/70 -?-?-?-?-?-?-?-?-?-?-?-?- 145 20 -?-?-?-?-?-?-?-?-?-?-?-?- SM- no vb lof go od fm no regular ctx 10/24/20 -?-?-?-?-?-?-?-?-?-?-?-?- 24w 5d 118/70 Trace -?-?-?-?-?-?-?-?-?-?-?-?- Negative 148 24 -?-?-?-?-?-?-?-?-?-?-?-?- -NO VB, LOF. S karon down so no weight. FM limited/ant placenta. echo is scheduled. 11/12/20 -?-?-?-?-?-?-?-?-?-?-?-?- 27w 3d 147 lb 8 oz 124/78 Nega tive -?-?-?-?-?-?-?-?-?-?-?-?- Negative 151 26 -?-?-?-?-?-?-?-?-?-?-?-?- MH-no VB, LOF. G ood FM. Nl CBC. Needs 3 hr GTT. Reviewed [facility] MFM US:she will schedule echo at [facility] and also growth US at [facility] 4 weeks. tdap, larc 11/27/20 -?-?-?-?-?-?-?-?-?-?-?-?- 29w 4d 150 lb 2 oz 130/72 Nega tive -?-?-?-?-?-?-?-?-?-?-?-?- Negative 145 29 -?-?-?-?-?-?-?-?-?-?-?-?- GP - no LOF, VB, DFM, ctx. Having heart palpitations and SOB with exercise - plan cardiology referral. 3h GTT nl. 12/10/20 -?-?-?-?-?-?-?-?-?-?-?-?- 31w 3d 148 lb 2 oz 102/60 Trac e -?-?-?-?-?-?-?-?-?-?-?-?- Negative 140 29 Cephalic -?-?-?-?-?-?-?-?-?-?-?-?- SM- no vb lof go od fm no regular ctx 12/23/20 -?-?-?-?-?-?-?-?-?-?-?-?- 33w 2d 146 lb 6 oz 118/88 Trac e -?-?-?-?-?--?-?-?-?-?-?-?- Negative 140 33 Cephalic -?-?-?-?-?-?-?-?-?-?-?-?- GP - no LOF, VB, DFM, ctx. Discussed weekly NSTs. Discussed delivery by 38w. 01/01/21 -?-?-?-?-?-?-?-?-?-?-?-?- 34w 4d 148 lb 6 oz 118/80 Nega tive -?-?-?-?-?-?-?-?-?-?-?-?- Negative 140 -?-?-?-?-?-?-?-?-?-?-?-?- MH-NST only-Reac tive 01/07/21 -?-?-?-?-?-?-?-?-?-?-?-?- 35w 3d 148 lb 118/76 -?-?-?-?-?-?-?-?-?-?-?-?- 140 -?-?-?-?-?-?-?-?-?-?-?-?- SM- no vb lof go od fm no regular ctx 01/15/21 -?-?-?-?-?-?-?-?-?-?-?-?- 36w 4d 148 lb 6 oz 120/84 Nega tive -?-?-?-?-?-?-?-?-?-?-?-?- Negative 120 Cephalic 4 -?-?-?-?-?-?-?-?-?-?-?-?- 60 -3 GP - no LO F, VB, DFM, ctx. GBS today. HORTON intermittently for last few days. BP nl. HORTON consistent with tension HORTON (significant neck muscle tenderness). Given flexeril and compazine. Knows to call if does not resolve. 01/24/21 -?-?-?-?-?-?-?-?-?-?-?-?- 37w 6d 147 lb 4 oz 122/90 -?-?-?-?-?-?-?-?-?-?-?-?- 140 37 Cephalic 5 -?-?-?-?-?-?-?-?-?-?-?-?- 60 -2 GP - no LO F, VB, DFM, ctx. Scheduled for IOL 01/25 for cHTN. 01/25/21 -?-?-?-?-?-?-?-?-?-?-?-?- 38w 0d 149 lb 120/86 116/76 -?-?-?-?-?-?-?-?-?-?-?-?- -?-?-?-?-?-?-?-?-?-?-?-?- NST FHR Rate Baby A Baseline: 130 Variability:: Moderate Accelerations:: 15 x 15 Decelerations:: None NST Reactive:: Yes FHR Category:: Category I Uterine Activity:: q3-4 min ROS Eyes Eyes: Reports systems reviewed and no addt'l complaints, except as documented ENT HEENT: Reports systems reviewed and no addt'l complaints, except as documented Cardiovascular Cardiovascular: Reports systems reviewed and no addt'l complaints, except as documented Respiratory/Chest Respiratory/Chest: Reports systems reviewed and no addt'l complaints, except as documented Gastrointestinal Gastrointestinal: Reports systems reviewed and no addt'l complaints, except as documented Genitourinary Genitourinary: Reports systems reviewed and no addt'l complaints, except as documented Musculoskeletal Musculoskeletal: Reports systems reviewed and no addt'l complaints, except as documented Integumentary Integumentary: Reports systems reviewed and no addt'l complaints, except as documented Neurologic Neurologic: Reports systems reviewed and no addt'l complaints, except as documented Psychiatric Psychiatric: Reports systems reviewed and no addt'l complaints, except as documented Endocrine Endocrinology: Reports systems reviewed and no addt'l complaints, except as documented Hematologic/Lymphatic Hematologic/Lymphatic: Reports systems reviewed and no addt'l complaints, except as documented Allergic/Immunologic Allergic/Immunologic: Reports systems reviewed and no addt'l complaints, except as documented Vital Signs Vital Signs Vital Signs: 01/25/21 07:27 01/25/21 09:33 01/25/21 09:34 Temperature 99.0 F 99.2 F H Temperature Source Temporal Temporal Pulse Rate 85 75 82 Blood Pressure 120/86 H 116/76 BP Systolic 120 116 BP Diastolic 86 76 Pulse Ox 98 01/25/21 09:42 Temperature Temperature Source Pulse Rate 127 H Blood Pressure BP Systolic BP Diastolic Pulse Ox 82 Weight Weight: 149 lb Body Mass Index (BMI) 27.2 Physical Exam Const alert, oriented x3, no apparent distress, average body habitus, healthy appearing and well nourished HEENT normocephalic and moist oral mucous membranes Head and Scalp: atraumatic Eyes PERRL and EOMs intact bilaterally Neck full ROM Resp normal respiratory effort, no retractions and no use of accessory muscles Cardio regular rate and regular rhythm GI soft to palpation, non-tender and non-distended Extremity normal to inspection and full ROM Skin no rashes or lesions noted Neuro no focal motor deficits and no sensory deficits noted Psych mental status grossly normal, affect normal, speech normal and activity/motor behavior normal Labs Labs Labs: Blood Type O POSITIVE Antibody Screen NEGATIVE Hct 41.2 % (37-47) Hgb 14.1 g/dL (12.0-15.0) Obstetrics US Rubella IgG Antibody Reactive (Nonreactive) Hep Bs Antigen Non-Reactive (Nonreactive) Neisseria gonorrhoeae DNA (JULIO) Negative (Negative) HIV 1&2 Antibody Non-Reactive (Nonreactive) C.trachomatis DNA (PCR) Negative (Negative) Glucose 1 Hr 50 gm 137 mg/dL (70-140) Group B Strep DNA POSITIVE (Negative) H Rhogam given: No Miscellaneous Test Assessment & Plan (1) : QUALIFIERS: Weeks of gestation: 37 weeks Qualified Code(s): Z3A.37 - 37 weeks gestation of COMMENT: NIPT- no results, carrier- neg declines AFP, referral to MFM; MaterniT- negative, anatomy nl, GBS NEGATIVE (2) History of third degree perineal laceration: COMMENT: Due to episiotomy with first delivery. No issues with second delivery. (3) History of chronic hypertension: COMMENT: weekly lori/nst. No issues with blood pressure since before first . Reports elevated BPs at end of first . No issues with second . Recommend ASA at 12 weeks. nl growth US, 01/07 nl growth (4) Anxiety during : COMMENT: Started after delivery of first child. Previously on lexapro, but stopped after found out that she was . Started on zoloft 50mg at NOB visit. 11/12 stable (5) Family history of congenital heart defect: COMMENT: Last child had a hole in his heart and still has a murmur. Reports did not require treatment. NL echo 11/22/20 (6) Supervision of high risk , antepartum: COMMENT: PRR CHARLES 02/08/21 boy Amrit Guerrero, Spouse Ernesto (7) Abnormal glucose in , antepartum: COMMENT: 3 hr GTT NL (8) Contraceptive management: COMMENT: No PA needed for IUD (9) Nonrheumatic mitral (valve) prolapse: COMMENT: Follows with cardiology. Will see cardiology early in . (10) Encounter for induction of labor: PLAN: Patient presents IOL, plan management for with pitocin/AROM. Pain management: plans epidural. GBS negative. Management of any complications: none [facility] and made any clinically relevant updates.
[2021-01-25] MEDS: fentaNYL-bupivacaine (epidural) 100 ML BAG EPIDURAL (10:19)
[2021-01-25] MEDS: Oxytocin 30 units/NS 500 ml 30 UNITS/500 ML IV.SOLN 334 UNITS IV (11:25)
--- NOTE | 2021-01-25 11:34 | OP.PCM_ITS ---
Assessment & Plan (1) Spontaneous vaginal delivery: Maternal Data Information CHARLES Calculator Estimated Delivery Date Method Current WG Current Estimate 02/08/21 LMP (Certain) 38w 0d Other Estimates 02/13/21 Ultrasound #1 37w 2d Vaginal Delivery Maternal Presentation Maternal Presentation: Medically Indicated Induction Maternal Presentation: 30-year-old at 38 weeks gestation admitted for induction of labor for chronic hypertension Type of Induction: Pitocin Medical Reason for Induction: Maternal Medical Condition: list: (Chronic hypertension) Operative Information Date of Procedure: 01/25/21 Pre-Operative Diagnosis: Term , chronic hypertension Post-Operative Diagnosis: Same Surgery / Procedure Performed: Spontaneous Vaginal Delivery Type of Anesthesia: Epidural Drain: Angela to straight drain Estimated Blood Loss: 100 Findings Description of Procedure: Patient began pushing and delivered the head in the NGHIA presentation. The head was delivered atraumatically and no nuchal cord was noted. The anterior and posterior shoulders delivered without complication followed by the rest of the infant and the infant was placed on the maternal abdomen. Delayed cord clamping was employed for approximately 60 seconds. Cord was clamped and cut and gentle traction was applied to the cord and the placenta delivered spontaneously immediately following it was noted to be intact with three-vessel cord. The perineum and vagina were inspected and noted to have no laceration. EBL was 100 cc. Patient and tolerated delivery well. Presentation: Vertex and NGHIA Amniotic Membrane Rupture Type: Spontaneous Amniotic Fluid Description: Clear Placental Delivery Description: Spontaneous Placenta Disposition: [facility] Cord Vessel Description: 3 Vessels Cord Entanglement: None Infant A Gender: Male Delayed Cord Clamping: Yes Post Vaginal Delivery Medications Given After Delivery: IV Pitocin Episiotomy Description: None Laceration: None Complication Complications: None Procedures Urinary/Genital [id number]: [id number] Vaginal Delivery [facility]
[2021-01-25] MEDS: Ibuprofen 600 MG Tablet PO (19:30)
[2021-01-25] MEDS: Senna/Docusate Sodium 1 Tablet PO (20:42)
[2021-01-26 03:54] VITALS: BP 112/75; PULSE 68; RESP 20; TEMP 36.9
[2021-01-26] MEDS: Ibuprofen 600 MG Tablet PO ×2 (04:07→12:17)
[2021-01-26] MEDS: Senna/Docusate Sodium 1 Tablet PO (08:34)
[2021-01-26 08:37] VITALS: BP 117/74; PULSE 85
[2021-01-26 08:45] VITALS: BP 117/74; PULSE 85; RESP 16; TEMP 36.5
--- NOTE | 2021-01-26 09:52 | PCM.PN.OB ---
Subjective Subjective Patient doing well without complaints. Tolerating PO. Ambulating and voiding without difficulty. Breast feeding well. Denies chest pain, shortness of breath, calf pain/swelling, fevers, chills, lightheadedness. Objective Data Objective Data Vital Signs: Vital Signs Temp Pulse Resp BP Pulse Ox 97.7 F L 85 16 117/74 98 01/26/21 08:45 01/26/21 08:45 01/26/21 08:45 01/26/21 08:45 01/25/21 19:32 Oxygen Delivery Method Room Air Weight: 149 lb Body Mass Index (BMI) 27.2 Intake & Output: Intake and Output for Last 24 Hours 01/24/21 01/25/21 01/26/21 23:59 23:59 23:59 Intake Total 1877.2 / 1877.2 Output Total 850 / 850 Balance 1027.2 / 1027.2 Lab / Micro Data Result Diagrams: 01/25/21 07:45 Labs: Laboratory Results - last 24 hr 01/25/21 07:45 Blood Type O POSITIVE Antibody Screen NEGATIVE ROS Constitutional Constitutional: Denies fever(s) Cardiovascular Cardiovascular: Denies chest pain, dyspnea or lightheadedness Gastrointestinal Gastrointestinal: Reports abdominal pain; Denies constipation or diarrhea Neurologic Neurologic: Denies dizziness or headache(s) Physical Exam Const alert, oriented x3, no apparent distress, average body habitus, healthy appearing and well nourished HEENT normocephalic Head and Scalp: atraumatic Eyes PERRL and EOMs intact bilaterally Neck full ROM Lymph Lymphatic: no lymphadenopathy noted Resp normal respiratory effort, no retractions and no use of accessory muscles Cardio regular rate GI soft to palpation, non-tender and non-distended Palpation: other Other Details: fundus firm Extremity normal to inspection and no clubbing, cyanosis or edema Skin no rashes or lesions noted Neuro no focal motor deficits and no sensory deficits noted Psych mental status grossly normal, affect normal and speech normal Assessment & Plan (1) Spontaneous vaginal delivery: PLAN: s/p PPD # 1 1. routine post delivery care 2. breast feeding- support given 3. rh positive 4. rubella immune 5. cHTN - normotensive since delivery
--- NOTE | 2021-01-26 09:53 | PCM.DC ---
Discharge Instructions Diet Discharge Diet: No restrictions Activity Discharge Activity: Return to Normal Activity, May Not Drive (while taking narcotic pain medications.) and May Shower May resume sexual activity in: 4-6 weeks Dressing / Incision Call your doctor if your incision/area has: Continuous Slow Oozing, Sudden Increased Bleeding, Increased Pain/ Swelling, Increased Redness and Foul Smelling Discharge Follow Up Care When: Call to make an appointment with your doctor in 6 weeks. If you had elevated Blood Pressure or 4th degree laceration you will need to be seen in 2 weeks. Test Results: Test results from this visit will be discussed in further detail at your follow-up appointment, if applicable. Discharge Plan Admission Admit Date/Time: 01/25/21 06:55 Attending Provider: Justine Kinsey Primary Care Provider: Anna Funez Instructions Patient Instructions: After a Vaginal Discharge Orders/Prescriptions Prescriptions: New fluoxetine 60 mg tablet 60 mg PO DAILY Qty: 30 RF: 12 ibuprofen 800 mg tablet 800 mg PO Q8H PRN (Reason: pain) Qty: 30 RF: 1 Continued Adult Probiotic 3 billion cell capsule 3,000 mmu cells PO DAILY RF: 0 spyxnnmt-qqj-Tn-FA 1 mg Tablet 1 tab PO DAILY RF: 0 magnesium Tablet 1 tab PO DAILY RF: 0 ondansetron 4 mg tablet,disintegrating 4 mg PO Q4H PRN (Reason: nausea and vomiting) Qty: 60 RF: 2 Discontinued fluoxetine 40 mg capsule 40 mg PO DAILY RF: 0 Referrals / Follow Up: Anna Funez PA-C [Primary Care Provider] - Disposition Disposition (needs filled in before D/C Order can be placed): Home, Self Care
[2021-01-26 12:19] VITALS: BP 101/61; PULSE 82; RESP 16; TEMP 36.7
--- NOTE | 2021-01-30 16:05 | NURSING ---
no answer on follow up phone call left voicemail
== END 2021-01-26 13:40 | disposition home or self-care (01) | DRG 807 ==
PROVIDERS: Admitting Provider Obstetrics & Gynecology; PCP Family Medicine; Visit Provider Obstetrics & Gynecology
DX: O10.92 Unspecified pre-existing hypertension complicating childbirth (principal); Z37.0 Single live birth; Z3A.38 38 weeks gestation of pregnancy; Z86.14 Personal history of Methicillin resistant Staphylococcus aureus infection; E78.5 Hyperlipidemia, unspecified; Z79.899 Other long term (current) drug therapy; Z87.891 Personal history of nicotine dependence; O99.344 Other mental disorders complicating childbirth; F41.9 Anxiety disorder, unspecified
CPT/HCPCS: 59025; 85025; 86850; 86900; 86901; 99218; J7120; G0378

== ENCOUNTER 2021-02-24 11:25 | Outpatient (CLI) | payer BC, MEDICAID, SELFPAY ==
[2021-02-18 11:09] VITALS: BMI 27.2
== END 2021-02-24 12:00 | disposition home or self-care (01) ==
LOC: WPOUT 11:32 → WP 11:33
PROVIDERS: PCP Family Medicine; Referring Provider Obstetrics & Gynecology; Visit Provider Obstetrics & Gynecology
DX: R63.3 Feeding difficulties (principal)
CPT/HCPCS: 96158

== ENCOUNTER → 2021-03-05 16:11 | Outpatient (CLI) | payer BC, MEDICAID, SELFPAY ==
[2021-03-11 20:08] LABS: HPV Genotype 16, Aptima Positive (Negative)
[2021-03-12 09:18] LABS: HPV APTIMA, High Risk Positive (Negative); HPV Genotype 18,45 Aptima Negative (Negative)
== END ==
PROVIDERS: PCP Family Medicine; Referring Provider Obstetrics & Gynecology; Visit Provider Obstetrics & Gynecology
DX: Z12.4 Encounter for screening for malignant neoplasm of cervix (principal)
CPT/HCPCS: 87624; 88175; G0145

== ENCOUNTER → 2021-06-19 16:54 | Outpatient (CLI) | payer OTHER, BC, MEDICAID, SELFPAY ==
--- NOTE | 2021-06-19 | IMM_PTH ---
PATIENT: KARMA FU LOC: [facility] U#:[id number] AGE/SX: 34/F ROOM: RE06/19/[address]: Dr. Francia York MD : 1990 BED: DIS: SPEC #: [id number] RECD: 06/23/21 13:34 STATUS: VERNON REQ #: [id number] ARELI: 06/19/21 00:[address]: Francia York DEPT: IMMUNOHISTOCHEMISTRY RECD BY: Inez Goncalves ENTERED: 06/23/21 13:34 SP TYPE: IMMUNO OTHR DR: Anna Funez PA-C Tissues: Uterine cervix, NOS Procedures: p16 (initial) KI-67 (add) PHYSICIAN & INSTITUTION [place] [address] SPECIMEN INFORMATION: Tissue Source: Cervix, biopsy Clinical Info: HPV positive Specimen Number: [id number] CPT code: 97533, 43325 METHODOLOGY: Deparaffinized sections of prefer/formalin-fixed tissue or PAP/DQ stained slides are incubated with monoclonal/polyclonal antibodies/oligonucleotide probes. Localization is made via biotin free immunoperoxidase method. Appropriate controls are performed and reacted as expected. Results on target cell population are indicated in the following table: RESULTS: ANTIBODY / CLONE RESULT P16 (E6H4) positive, block staining Ki-67 (30-9) positive, high These tests were developed and their performance characteristics determined by [facility]. They may not have been cleared or approved by the U.S. Food and Drug Administration. The FDA has determined that such clearance or approval is not necessary. The above immunohistochemical/dualISH markers are ordered and reviewed by the Pathologist. INTERPRETATION: Cervix, biopsy: Severe squamous dysplasia. PEGGY:chayito 06/24/2021
--- NOTE | 2021-06-19 | CER_PTH ---
PATIENT: KARMA FU LOC: [facility] U#:[id number] AGE/SX: 34/F ROOM: RE06/19/[address]: Dr. 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 Dysplastic changes also involve endocervical glands. Mild chronic inflammation. See comment. SJ:chayito 06/23/2021 COMMENT Results from immunohistochemistry ([id number]) for surrogate HPV marker (p16) will be reported separately. Case has been reviewed in consultation with Dr. Velasquez who concurs with the above diagnosis. IDC:AM MICROSCOPIC DESCRIPTION Slides are reviewed. GROSS DESCRIPTION Received is one container labeled with the patient's name and not further designated. The specimen consists of one irregular fragment of light mcneil soft tissue that measures 0.3 x 0.2 x 0.1 cm. The specimen is totally submitted in one cassette. / PEGGY:chayito 06/20/21 TC:5 CPT: 70496
== END ==
PROVIDERS: PCP Family Medicine; Visit Provider Obstetrics & Gynecology
DX: A63.0 Anogenital (venereal) warts (principal)
CPT/HCPCS: 88305; 88341; 88342

== ENCOUNTER 2021-09-30 11:17 | Day surgery (SDC) | payer OTHER, BC, MEDICAID, SELFPAY ==
[2021-09-29 13:25] LABS: Absolute Lymphocyte Count 2.02 X10^3/uL (0.83-4.51); Absolute Neutrophil Count 3.9 X10^3/uL (2.0-7.7); Basophil# 0.05 X10^3/uL; Basophil% 0.8 % (0-1); Eosinophil# 0.09 X10^3/uL; Eosinophils% 1.4 % (0-5); Hematocrit 45.7 % (37-47); Hemoglobin 15.6 g/dL (12.0-15.0); Lymphocyte # 2.02 X10^3/ul (0.83-4.51); Lymphocyte % 30.4 % (19-41); Mean Corp Hgb Conc 34.1 g/dL (32-36); Mean Corpuscular Hgb 30.9 pg (27.0-32.0); Mean Corpuscular Volume 90.5 fL (81-99); Mean Platelet Vol. 10.2 fl (6.2-12.0); Monocyte# 0.57 X10^3/uL; Monocyte% 8.6 % (0-10); NRBC Flagged by Analyzer 0 % (0-5); Neutrophil # 3.89 X10^3/uL (2.7-7.7); Neutrophil % 58.5 % (47-70); Platelet Count 331 K/mm3 (150-450); RBC Distribution Width CV 13.5 % (11.6-14.6); Red Blood Count 5.05 M/mm3 (4.2-5.4); White Blood Count 6.6 K/mm3 (4.4-11.0)
[2021-09-30] VITALS (9 sets, daily range): BP systolic 90–121; BP diastolic 45–71; PULSE 63–88; RESP 16; TEMP 36.2–36.9; O2SAT 97–100; BMI 27.3
--- NOTE | 2021-09-30 | IMM_PTH ---
PATIENT: KARMA FU LOC: [facility] U#:[id number] AGE/SX: 31/F ROOM: RE09/30/[address]: Dr. Francia York MD : 1990 BED: DIS: 09/30/2021 SPEC #: [id number] RECD: 10/02/21 13:26 STATUS: VERNON REQ #: [id number] ARELI: 09/30/21 00:[address]: Francia York DEPT: IMMUNOHISTOCHEMISTRY RECD BY: Inez Goncalves ENTERED: 10/02/21 13:27 SP TYPE: IMMUNO OTHR DR: Anna Funez PA-C Tissues: A - Uterine cervix, NOS Procedures: p16 (initial) KI-67 (add) PHYSICIAN & INSTITUTION [place] [address] SPECIMEN INFORMATION: Tissue Source: A ? Cervical tissue Clinical Info: Cervical intraepithelial neoplasia grade III with severe dysplasia Specimen Number: [id number] CPT code: 79264, 54004 METHODOLOGY: Deparaffinized sections of prefer/formalin-fixed tissue or PAP/DQ stained slides are incubated with monoclonal/polyclonal antibodies/oligonucleotide probes. Localization is made via biotin free immunoperoxidase method. Appropriate controls are performed and reacted as expected. Results on target cell population are indicated in the following table: RESULTS: ANTIBODY / CLONE RESULT Block A2 P16 (E6H4) positive, block-like Ki-67 (30-9) positive These tests were developed and their performance characteristics determined by [facility]. They may not have been cleared or approved by the U.S. Food and Drug Administration. The FDA has determined that such clearance or approval is not necessary. The above immunohistochemical/dualISH markers are ordered and reviewed by the Pathologist. INTERPRETATION: Cervix, LEEP conization: Severe squamous dysplasia, DEISY III (HSIL). AM:chayito 10/03/2021
--- NOTE | 2021-09-30 05:55 | HP.PCM_ITS ---
History and Physical Date of Admission: 09/30/21 Intake Visit Reasons: PRE OP Chief Complaint: pre op Compliance Nurse Required: No Is patient in pain?: No Allergies No Known Allergies Allergy (Verified 09/19/21 09:11) Medications fluoxetine 60 mg PO DAILY #30 tab 01/26/21 [Rx Confirmed 09/22/21] Is last menstrual period known: No Post menopausal: No Patient : No : No PFSH Medical History Anxiety Chronic hypertension Contraceptive management Family history of secondary ovarian cancer History of chronic hypertension History of tetanus, diphtheria, and acellular pertussis booster vaccination (Tdap) History of third degree perineal laceration HPV test positive Hyperlipidemia MRSA infection Multiple premature ventricular complexes Nonrheumatic mitral (valve) prolapse depression Spontaneous vaginal delivery (spontaneous vaginal delivery) Tachycardia Surgical History History of surgery Family History Mother , from renal failure age 56 Diabetes Thyroid disorder Kidney disease from L\lupus/renal failure Heart disease Mitral Valve Repair Lupus Grandmother Cancer Maternal grandmother ovarian Lung cancer paternal Grandmother Father CAD (coronary artery disease) from [place] Myocardial infarction, Onset Age: 49 from [place] 47 Social History Smoking Status: Former smoker quit date: 07/19/18 pack-years: 4 alcohol intake: never substance use type: does not use caffeine: Yes what type of physical activity do you participate in: none seatbelt use: always do you feel safe at home: Yes additional social history: -Ernesto HPI PRE OP Details: KARMA FU is a 31 year old who presents for preop appointment planning lap bs and leep, iud removal. Female Reproductive History Menopausal Symptoms: No night sweats Pregancy History 5 Elective abortions Hx Para 3 Spontaneous abortions Hx # Term Pregnancies Ectopic pregnancies Hx # Pregnancies Multiple births # of living children 3 Past Pregnancies Del. Date Name GA/Weeks Outcome Route Bth Weight Gen Labor Lgth Anesthesia Del Locatn Provider KHADAR 09/13/16 Jose 37 live - full term Male [facility] Ernesto 02/19/18 Amrit 37 live - full term Male [facility] Dr. Kira Orozco 01/25/21 Jeferson 38 live - full term 6lbs 7oz Male [facility] Dr. Tio Orozco Delivery Date: 09/13/16 tachycardia during labor, water broke at 37 weeks [facility] Delivery Date: 02/19/18 No issues during or delivery. Randi Holt Delivery Date: 01/25/21 Induced for chronic hypertension Randi Holt ROS Const Constitutional: Denies fatigue, night sweats, weight gain or weight loss ENT ENT: Reports system reviewed and no additional complaints, except as documented Cardio Card: Denies chest pain Resp Resp: Denies cough or dyspnea GI GI: Reports as per HPI; Denies abdominal pain, constipation, nausea or vomiting : Denies nipple discharge, urinary frequency, urinary incontinence, urinary hesitancy, urinary urgency, vaginal discharge, vaginal dryness, vaginal odor or vaginal pruritus Musc Musc: Denies arthralgias, back pain or muscle weakness Skin Skin/Breast: Denies alopecia, change in hair, dry skin, breast mass, breast pain, breast skin changes or nipple discharge Neuro Neuro: Reports system reviewed and no additional complaints, except as documented Psych Psych: Reports system reviewed and no additional complaints, except as documented Endo Endo: Denies cold intolerance, excessive sweating, heat intolerance or polydipsia Lupillo/Lymph Hematologic/Lymphatic: Denies easy bleeding, Denies easy bruising and Denies lymphadenopathy Exam Const General: cooperative, healthy appearing, comfortable, no acute distress and well developed Orientation: alert [facility] Head: normal to inspection and normocephalic Ears: hearing grossly normal bilaterally and external ears normal Nose: external nose normal and nares normal Face and sinus: normal facial exam Neck Neck: normal visual inspection and no lymphadenopathy Thyroid: thyroid normal Chest Chest palpation & inspection: normal inspection of the chest Resp Effort & Inspection: normal respiratory effort Cardio Rate: regular rate GI Inspection: normal to inspection and non-distended Palpation: soft and no hepatosplenomegaly Musc Other: gross motor intact no deficits, full bilateral strength Skin General: no rashes or lesions noted Neuro General: patient alert, patient awake, moves all extremities and no focal motor deficits Motor: muscle tone normal throughout Extrem General: normal to inspection and no pedal edema Psych Appearance: grossly normal Mental Status: mental status grossly normal Affect: normal affect Speech and Movement: speech and movement normal Coding Level of Care Code No Charge Exam Problem Focused Diagnoses DEISY III (cervical intraepithelial neoplasia grade III) with severe dysplasia D06.9 Sterilization Z30.2 Assessment and Plan Assessment and Plan (1) DEISY III (cervical intraepithelial neoplasia grade III) with severe dysplasia: Status: Acute Comment: plan LEEP Plan - Dr. Francia York MD: After discussing the patient's diagnosis and treatment plan options, patient wishes to proceed with surgical management. I have discussed with the patient the risks, benefits, and alternatives of the procedure which include but are not limited to risks of anesthesia, bleeding, infection, possible damage to bowel, bladder, or surrounding vasculature which could lead to additional surgery to evaluate any complications. Patient agrees to procedure and wishes to proceed. ACOG/uptodate references given for additional information regarding procedure. (2) Sterilization: Status: Acute Comment: plan Lap BS Plan Details Other Orders: Orders: POC Urine 09/19/21 N92.6 UPDATE- I have seen the patient and performed any clinically relevant updates to the history and physical exam. Francia York MD
[2021-09-30 11:57] LABS: Internal QC Validated? YES +Cl - CLEAR BKGD
[2021-09-30 12:00] LABS: Pregnancy, Urine Negative Negative
[2021-09-30] MEDS: Lactated Ringers 1,000 ML 15 ML IV (12:03)
--- NOTE | 2021-09-30 13:00 | CONE_PTH ---
PATIENT: KARMA FU LOC: [facility] – [place] U#:[id number] AGE/SX: 31/F ROOM: RE09/30/[address]: Dr. Francia York MD : [id number] BED: DIS: 09/30/2021 SPEC #: [id number] RECD: 09/30/21 15:39 STATUS: VERNON REGeorgina #: [id number] ARELI: 09/30/21 13:[address]: Francia York DEPT: SURGICAL PATHOLOGY RECD BY: Kandy Galeana ENTERED: 10/01/21 09:10 SP TYPE: Leep Cone OTHR DR: Anna Funez PA-C Tissues: A - UTERINE CERVIX LEEP B - Endometrium, NOS C - Fallopian tube Procedures: Surgery Specimen Level II Surgery Specimen Level IV Surgery Specimen Level V HEADER OPERATION: Laparoscopic salpingectomy, LEEP, IUD removal PRE-OP DIAGNOSIS: Cervical intraepithelial neoplasia grade III with severe dysplasia, sterilization TISSUE SUBMITTED: A ? Cervical tissue, B ? Endometrial curettings, C ? Bilateral fallopian tubes MICROSCOPIC DIAGNOSIS A. Cervix, LEEP conization: Severe squamous dysplasia, DEISY III (HSIL). Changes consistent with HPV cytopathic effect. See comment. B. Endometrium, curettings: Strips of benign superficial endocervix and squamous mucosa. See comment. C. Right and left fallopian tubes, bilateral salpingectomies: Complete cross-sections of fallopian tubes with benign paratubal cyst. AM:chayito 10/02/2021 COMMENT A. Results from immunohistochemistry ([id number]) for surrogate HPV marker (p16) will be reported separately. High-grade dysplasia focally extends to the cauterized endocervical margin. Clinical correlation is suggested. B. Endometrial tissue is not represented in the biopsy. Clinical correlation is suggested. Reference is made to the patient's cervical biopsy from 2020 ([id number]) in which severe squamous dysplasia with HPV change was identified. MICROSCOPIC DESCRIPTION Slides are reviewed. GROSS DESCRIPTION A - Received in fixative is one container labeled with the patient's name and designated cervical tissue. The specimen consists of four irregular fragments of pink-mcneil soft tissue ranging in size from 1 to 2.6 cm. No mass lesions are identified. The fragments are inked, serially sectioned and totally submitted in four cassettes. B - Received in fixative is one container labeled with the patient's name and designated endocervical curettings. The specimen consists of light mcneil mucoid material aggregating to 2 x 0.6 x <0.1 cm. The specimen is totally submitted in one cassette. C - Received in fixative is one container labeled with the patient's name and designated bilateral fallopian tubes. The specimen consists of two fallopian tubes with an average length of 6 cm and has an average diameter of 0.6 cm. Both fallopian tubes have normal fimbriated ends. No mass lesions are identified. Convertible Top Installer sections are submitted in two cassettes as follows: 1 - one fallopian tube, 2 - the other fallopian tube. / AM:chayito 10/01/2021 TC:0 CPT: 07383, 92249, 79219 x2
[2021-09-30] MEDS: Bupivacaine 0.25% 30 ML Vial (14:10)
[2021-09-30] MEDS: Iodine/Potassium Iodide 14ML Bottle 1 DRP TOPICAL (14:30)
[2021-09-30] MEDS: FERRIC SUBSULFATE 8 GM SOLN (14:30)
--- NOTE | 2021-09-30 14:44 | OP.PCM_ITS ---
Problems Associated Problem List Diagnoses (1) DEISY III (cervical intraepithelial neoplasia grade III) with severe dysplasia: (2) Sterilization: Report of Operation Pre-Operative Diagnosis: see problem list Post-Operative Diagnosis: same Surgery/Procedure Performed:: laparoscopic bilateral salpingectomy leep iud removal Description of Surgical Findings:: nl uterus tubes ovaries Type of Anesthesia: General and Local Specimen's removed: tubes Drains: none Estimated Blood Loss (mL): 50 Fluids Replaced: crystalloid Description of Procedure: Patient was taken in the operating room and was placed under general anesthesia was prepped and draped in normal sterile fashion in the dorsal lithotomy position. Bladder was drained of clear urine and SCDs were on preoperatively. iud removaed without difficulty by grasping strings and pulling. Uterus was sounded and a uterine manipulator was placed after dilating. Attention was then paid to the abdominal portion of the procedure and the umbilicus was elevated with towel clamps and injected with Marcaine and after a 5 mm incision was made and the Veress needle was entered into the abdomen confirmed to be intra-abdominal with a low opening pressure of less than 5 mmHg. Abdomen was insufflated with CO2 gas and a 5 mm optical trocar was placed under direct visualization. A 5 mm port suprapubically was placed under direct visualization. Uterus was well visualized and bilateral fallopian tubes identified and bilateral tubes were elevated and transecting across the mesosalpinx and the attachment to the uterine corpus bilaterally the tubes were removed without complication. Excellent hemostasis was noted. Fallopian tubes were removed through the lower port site without complication. Liver and upper abdomen were visualized notably within normal limits and no other gross abnor malities were seen in the abdomen. All instruments removed from the abdomen after gas was desufflated. Port sites were closed with 3-0 Monocryl Steri's and op sites were applied. Attention was then paid to the vaginal portion of the procedure and the uterine manipulator was removed. Using a loop electrode the outer part of the cervix was removed including the squamocolumnar junction. Endocervical curettings were taken and the base of the cervix was cauterized around the borders and the base to obtain excellent hemostasis. Monsel's paste was placed and patient was awoken and taken recovery in stable condition. Grafts/Implants Used: none Complications none Admit VTE Documentation VTE Present on Admission: No VTE Mechan Device Prophylaxis: SCD's Multi Select Codes Urinary/Genital Urinary/Genital CPT Codes: 53429 Endocervical curettage, 05556 LEEP, 57990 Laproscopic BS/O and Other Procedure See Report (iud removal 01425)
--- NOTE | 2021-09-30 14:47 | DCINST_ITS ---
Discharge Instructions Procedure LEEP Diet Discharge Diet: No restrictions Activity Discharge Activity: Return to Normal Activity, May Not Drive (for 2 weeks or while taking narcotic pain meds.), May Shower and May Take a Tub Bath (in 7 days) May resume sexual activity in: 1 week Weight Bearing Status: Full weight bearing Dressing / Incision Call your doctor if your incision/area has: Continuous Slow Oozing, Sudden Increased Bleeding, Increased Pain/ Swelling, Increased Redness and Foul Smelling Discharge Call your doctor if you observe: Fever of 101 or Higher, Using more than 1 pad per hour, Shortness of breath, Chest pain and Uncontrolled pain Suture Line Care: Avoid Pulling/Pushing and Avoid Pinching/Bending Remove Dressing in: 1 week (if present) Cleanse incision/area with: Soap & Water and Keep Dressing Clean & Dry Follow Up Care Please Follow Up With: Francia York MD When: Call to make an appointment with your doctor for a fu/incision check in 1- 2 weeks. Test Results: Test results from this visit will be discussed in further detail at your follow-up appointment, if applicable. Discharge Plan Admission Attending Provider: Francia York Primary Care Provider: Anna Funez Discharge Orders/Prescriptions Prescriptions: New oxycodone-acetaminophen [Percocet] 5-325 mg tablet 1 tab PO Q6H PRN (Reason: pain) 7 Days Qty: 20 RF: 0 naproxen [naproxen] 500 MG tablet 500 mg PO BID PRN PRN (Reason: Pain) Qty: 30 RF: 1 Continued fluoxetine 60 mg tablet 60 mg PO DAILY Qty: 30 RF: 12 Probiotic 3 billion cell Capsule 3,000 mmu cells PO BID RF: 0 Mushroom Supplement 2 cap PO/SL DAILY RF: 0 Referrals / Follow Up: Anna Funez PA-C [Primary Care Provider] - Disposition Disposition (needs filled in before D/C Order can be placed): Home, Self Care
[2021-09-30] MEDS: HYDROcodone Bitartrate/Apap 5/325 Tablet PO (16:38)
== END 2021-09-30 23:59 | disposition home or self-care (01) ==
LOC: SDC 11:21 → AC 11:23
PROVIDERS: PCP Family Medicine; Referring Provider Obstetrics & Gynecology; Visit Provider Obstetrics & Gynecology
PROC: (CPT 58661; principal; 2021-09-30 12:45)
DX: Z30.2 Encounter for sterilization (principal); D06.9 Carcinoma in situ of cervix, unspecified; N83.8 Other noninflammatory disorders of ovary, fallopian tube and broad ligament; F17.200 Nicotine dependence, unspecified, uncomplicated; F41.9 Anxiety disorder, unspecified; Z79.899 Other long term (current) drug therapy; Z80.41 Family history of malignant neoplasm of ovary; Z30.432 Encounter for removal of intrauterine contraceptive device
CPT/HCPCS: 58661; 58301; 00840; 36415; 81025; 85025; 86850; 86900; 86901; 87426; 88302; 88305; 88307; 88341; 88342; C9803; J7120; J2405

== ENCOUNTER 2021-10-08 09:41 | Emergency (ER) | payer OTHER, BC, MEDICAID, SELFPAY ==
[2021-10-08 09:42] VITALS: BP 145/98; PULSE 102; RESP 14; TEMP 36.2; O2SAT 97; BMI 26.9
--- NOTE | 2021-10-08 10:11 | ED.VIS.FEGU ---
HPI HPI - Female History of Present Illness Chief Complaint: Vag Bleeding Detail of Chief Complaint: Vaginal bleeding that started this morning Informant: patient Narrative Narrative: Patient presents to the emergency department complaint of vaginal bleeding that started this morning. Patient states that she got up and while using the restroom she coughed and had a clot fall out of her and has been having vaginal bleeding since. Patient states that she soaked through 4 pads in 7:30 AM. Patient tells me she had a LEEP procedure 8 days ago as well as tubal ligation. Patient called her [facility] who advised her to come to the emergency department. She does describe some lightheadedness. She has some mild lower abdominal cramping. She is not on any blood thinners. [facility] Medical History (Updated 10/08/21 @ 10:[address] Marcella Maya, ) Alcohol use Anxiety Cardiology follow-up encounter Chronic hypertension Contraceptive management Family history of secondary ovarian cancer Heartburn History of chronic hypertension History of echocardiogram History of irregular heartbeat History of steroid therapy History of tetanus, diphtheria, and acellular pertussis booster vaccination (Tdap) History of third degree perineal laceration HPV test positive Hyperlipidemia Migraine headache MRSA infection Multiple premature ventricular complexes Nonrheumatic mitral (valve) prolapse depression Smoker Spontaneous vaginal delivery (spontaneous vaginal delivery) Tachycardia Wears contact lenses Home Medications fluoxetine 60 mg PO DAILY #30 tab 01/26/21 [Rx Last Taken 09/30/21 07:30] Mushroom Supplement 2 cap PO/SL DAILY 09/23/21 [History Last Taken Unknown] Probiotic 3,000 mmu cells PO BID 09/23/21 [History Last Taken Unknown] naproxen 500 mg PO BID PRN PRN #30 tab 09/30/21 [Rx Last Taken Unknown] oxycodone-acetaminophen [Percocet] 1 tab PO Q6H PRN 7 Days #20 tab 09/30/21 [Rx Last Taken Unknown] Allergy/AdvReac Type Severity Reaction Status Date / Time No Known Allergies Allergy Verified 10/08/21 09:42 Family History Mother , from renal failure age 56 Diabetes Thyroid disorder Kidney disease from L\lupus/renal failure Heart disease Mitral Valve Repair Lupus Grandmother Cancer Maternal grandmother ovarian Lung cancer paternal Grandmother Father CAD (coronary artery disease) from [place] Myocardial infarction, Onset Age: 49 from [place] 47 Surgical History (Updated 10/08/21 @ 10:07 by Natalie Elizondo) History of loop electrical excision procedure (LEEP) History of surgery Social History Smoking Status: Current every day smoker tobacco type: cigarettes alcohol intake: never substance use type: does not use caffeine: Yes what type of physical activity do you participate in: none seatbelt use: always do you feel safe at home: Yes additional social history: -Ernesto FERNANDEZ ROS ED Constitutional Constitutional ED: Reports systems reviewed and no addt'l complaints, except as documented; Denies body ache(s), change in weight or chills Eyes Eyes: Denies acute decrease in peripheral vision, change in vision, double vision or loss of vision ENT ENT ED: Reports none; Denies ear pain, lip swelling, loss taste/smell, neck pain, otalgia or sore throat Cardiovascular Cardiovascular: Reports none; Denies abdominal pain, chest pain with activity, leg edema, lightheadedness, palpitations, rapid heart rate or syncope Respiratory/Chest Respiratory/Chest: Reports none; Denies change in mental status, dry cough, dyspnea, hemoptysis, shortness of breath at rest or shortness of breath with exertion Gastrointestinal Gastrointestinal: Reports none; Denies abdominal pain, change in stool character, diarrhea, hematemesis, hematochezia, melena, rectal bleeding or vomiting Genitourinary Genitourinary ED: Reports none, dysuria and other Details: Vaginal bleeding ; Denies abdominal discomfort, anuria, genital pain or polyuria Musculoskeletal Musculoskeletal: Reports none; Denies arthralgias, back pain, difficulty walking, extremity pain, muscle weakness or myalgias Integumentary Reports none; Denies abscess or rash Neurologic Neurologic: Reports none; Denies abnormal gait, confusion, focal weakness, frequent falls, headache(s), loss of vision, numbness, paresthesias, radicular pain, vertigo or weakness Psychiatric Psychiatric: Reports systems reviewed and no addt'l complaints, except as documented and none; Denies behavioral changes, confusion, difficulty concentrating, hallucinations, suicidal ideation, tactile hallucinations or visual hallucinations Endocrine Endocrinology: Denies none, cold intolerance, excessive sweating, fatigue or heat intolerance Hematologic/Lymphatic Hematologic/Lymphatic: Reports none; Denies anemia, easy bleeding or easy bruising Allergic/Immunologic Allergic/Immunologic ED: Denies as per HPI, none, lip swelling, mouth swelling, throat swelling, tongue swelling or hives EXAM Physical Exam Const Vital Signs: 10/08/21 09:42 Temperature 97.1 F L Temperature Source Temporal Pulse Rate 102 H Respiratory Rate 14 Blood Pressure 145/98 H Blood Pressure Mean 113 Pulse Ox 97 Oxygen Delivery Method Room Air Positive well nourished and well developed General Appearance ED: well developed and NAD HEENT Reports TM's clear and moist mucous membranes normocephalic and atraumatic; Negative for trauma or tenderness Tympanic Membrane ED: Yes TM's clear Eyes PERRL and EOMs intact bilaterally General Eye ED: Negative for pale conjunctiva or scleral icterus Neck no lymphadenopathy, supple and no JVD General: Negative for tenderness Chest Wall inspection of chest normal and palpation of chest normal Chest: Negative for tenderness Resp normal respiratory effort and clear to auscultation bilaterally Effort and Inspection: Negative for respiratory distress or pain with movement Auscultation: Negative for rhonchi, wheezes or diminished lung sounds Cardio regular rate, regular rhythm, S1 normal heart sound, S2 normal heart sound and no murmurs Peripheral Pulses: pulses 2+ throughout GI normal to inspection, nondistended, normoactive bowel sounds, soft to palpation, non-tender, non-distended and no masses Back/Spine no CVA tenderness and no thoracic nor lumbar tenderness Extremity normal to inspection General Extremety ED: Negative for edema General Extremity: Negative for edema Neuro oriented x3, CN's II-XII intact bilaterally, no sensory deficits noted and gait normal Sensorium / Orientation: awake, alert, oriented to person, oriented to place and oriented to time Motor Exam: strength 5/5 throughout and strength abnormal Psych mental status grossly normal Skin no rashes or lesions noted and no wounds MDM MDM MDM Narrative Medical decision making narrative: IV line established on arrival. Hemoglobin was 15.6. On pelvic exam she was noted to have small amount of blood oozing from the superior right portion of the cervix. I discussed case with Katrina Kwan who is covering for who asked that I discharge patient to the OB department and they will definitively manage this there. Patient will be discharged to go to OB for definitive care of postop bleeding from LEEP procedure. Lab Data Attestation: I reviewed the patient's lab results. Labs: Laboratory Results - last 24 hr 10/08/21 10:20 WBC 9.5 RBC 4.96 Hgb 15.6 H Hct 44.6 MCV 89.9 MCH 31.5 MCHC 35.0 RDW Std Deviation 45.1 H RDW Coeff of Blanquita 13.6 Plt Count 295 MPV 10.2 Immature Gran % (Auto) 0.500 Neut % (Auto) 71.9 H Lymph % (Auto) 18.7 L [place] % (Auto) 7.3 Eos % (Auto) 1.2 Baso % (Auto) 0.4 Absolute Neuts (auto) 6.8 Absolute Lymphs (auto) 1.77 Nucleated RBC % 0 Discharge Plan Triage Chief Complaint: Vag Bleeding ED Provider: Marcella Maya Dx/Rx/DC Orders Clinical Impression: Post-op bleeding Instructions: ED Post Op Wound Check, Bleeding Prescriptions: No Action fluoxetine 60 mg tablet 60 mg PO DAILY Qty: 30 RF: 12 Probiotic 3 billion cell Capsule 3,000 mmu cells PO BID RF: 0 Mushroom Supplement 2 cap PO/SL DAILY RF: 0 oxycodone-acetaminophen [Percocet] 5-325 mg tablet 1 tab PO Q6H PRN (Reason: pain) 7 Days Qty: 20 RF: 0 naproxen [naproxen] 500 MG tablet 500 mg PO BID PRN PRN (Reason: Pain) Qty: 30 RF: 1 Primary Care Provider: Anna Funez Referrals: Anna Funez, PA-C [Primary Care Provider] - Activity Restrictions/Additional Instructions: Go directly to the [facility] department for definitive care of the postop of bleeding Disposition Disposition: Home, Self Care
[2021-10-08] MEDS: 0.9% Normal Saline 1,000 ML 1000 ML IV (10:23)
[2021-10-08 10:33] LABS: Absolute Lymphocyte Count 1.77 X10^3/uL (0.83-4.51); Absolute Neutrophil Count 6.8 X10^3/uL (2.0-7.7); Basophil# 0.04 X10^3/uL; Basophil% 0.4 % (0-1); Eosinophil# 0.11 X10^3/uL; Eosinophils% 1.2 % (0-5); Hematocrit 44.6 % (37-47); Hemoglobin 15.6 g/dL (12.0-15.0); Lymphocyte # 1.77 X10^3/ul (0.83-4.51); Lymphocyte % 18.7 % (19-41); Mean Corpuscular Hgb 31.5 pg (27.0-32.0); Mean Corpuscular Volume 89.9 fL (81-99); Mean Platelet Vol. 10.2 fl (6.2-12.0); Monocyte# 0.69 X10^3/uL; Monocyte% 7.3 % (0-10); NRBC Flagged by Analyzer 0 % (0-5); Neutrophil # 6.82 X10^3/uL (2.7-7.7); Neutrophil % 71.9 % (47-70); Platelet Count 295 K/mm3 (150-450); RBC Distribution Width CV 13.6 % (11.6-14.6); RBC Distribution Width SD 45.1 fl (35.1-43.9); Red Blood Count 4.96 M/mm3 (4.2-5.4); White Blood Count 9.5 K/mm3 (4.4-11.0)
[2021-10-08 11:02] VITALS: RESP 16
== END 2021-10-08 11:04 | disposition home or self-care (01) ==
PROVIDERS: Emergency Provider Emergency Medicine; PCP Family Medicine; Visit Provider Emergency Medicine
DX: N99.820 Postprocedural hemorrhage of a genitourinary system organ or structure following a genitourinary system procedure (principal); N93.9 Abnormal uterine and vaginal bleeding, unspecified; F17.210 Nicotine dependence, cigarettes, uncomplicated
CPT/HCPCS: 85025; 86850; 86900; 86901; 96360; 99282; J7030; A4216

== ENCOUNTER 2021-10-14 17:44 | Emergency (ER) | payer OTHER, BC, MEDICAID, SELFPAY ==
[2021-10-14 17:46] VITALS: BP 133/87; PULSE 74; RESP 18; TEMP 36.3; O2SAT 96; BMI 27.5
--- NOTE | 2021-10-14 19:11 | ED.RN ---
pt was taken to labor and delivery by dr sosa.unknown if pt will be coming back
--- NOTE | 2021-10-14 19:17 | ED.RN ---
PT LWBS 1912
== END 2021-10-14 19:15 | disposition left against medical advice (07) ==
LOC: ED 19:46
PROVIDERS: PCP Family Medicine
DX: Z53.21 Procedure and treatment not carried out due to patient leaving prior to being seen by health care provider (principal)

== ENCOUNTER → 2022-04-16 | Outpatient (CLI) | payer OTHER, BC, MEDICAID, SELFPAY ==
[2022-04-24 15:25] LABS: HPV APTIMA, High Risk Negative (Negative)
== END | disposition home or self-care (01) ==
LOC: LABSPEC 13:45
PROVIDERS: PCP Family Medicine; Visit Provider Obstetrics & Gynecology
DX: D06.9 Carcinoma in situ of cervix, unspecified (principal)
CPT/HCPCS: 87624; 88175; G0145